=== PATIENT | female | born 1990 | race Caucasian/White ===

== ENCOUNTER 2021-07-12 04:18 | Emergency (ER) | payer BC ==
[~2021-07-12] VITALS: Ht 180.3 cm; Wt 79.1 kg
--- NOTE | 2021-07-12 04:31 | PHYS DOC ---
Past Medical History Past Medical History: Migraines Additional Past Medical Histor: Chronic abdominal pain Past Medical History Limited secondary to intoxication (BAL PRESCOTT DO) Past Surgical History: No Surgical History Past Surgical History Limited secondary to intoxication (BAL PRESCOTT DO) Smoking Status: Never Smoker Alcohol Use: Occasionally Drug Use: Benzodiazepine Social History Limited secondary to intoxication (BAL PRESCOTT DO) General Adult EDM: Chief Complaint: SUICDAL IDEATION HPI: HPI: 30-year-old female presents via EMS with report of intentional overdose with suicidal ideation. Patient reportedly took 10 tablets of her Librium 10 mg, 15 tablets of Phenergan 25 mg, and 10 tablets of Flexeril 10 mg. Patient also reports use of alcohol. Patient also cut herself with a kitchen knife to her l ower abdomen and bilateral thighs. Patient reports last tetanus booster less than 5 years ago. Patient reports she is "just tired of hurting ". History of present illness limited secondary to intoxication. (BAL PRESCOTT DO) Review of Systems: Review of Systems: Constitutional: Denies fever or chills Eyes: Denies redness or eye pain HENT: Denies nasal congestion or sore throat Respiratory: Denies cough or shortness of breath Cardiovascular: Denies chest pain; reports palpitations GI: Denies abdominal pain, nausea, or vomiting : Denies dysuria Integument: Denies rash; reports multiple superficial lacerations which were self-induced Neurologic: Denies headache, focal weakness or sensory changes review of systems limited secondary to intoxication (BAL PRESCOTT DO) Heart Score: C/O Chest Pain: N/A (BAL PRESCOTT DO) C/O Chest Pain: No (ROBERTO SUN MD) Physical Exam: PE: Constitutional: Well developed, well nourished, no acute distress, non-toxic ap pearance HENT: Normocephalic, atraumatic Eyes: Conjunctiva normal, no discharge, horizontal nystagmus noted Neck: Normal range of motion, supple Lungs & Thorax: No respiratory distress, equal chest rise and fall Abdomen: Soft, no tenderness, no guarding/rebound tenderness/distention Skin: Warm, dry, no erythema, lacerations as below 1) Right anterior thigh (superior) (3cm) 2) Right anterior thigh (medial) (3cm) 3) Left anterior thigh (superior) (3cm) 4) Left anterior thigh (medial) (2cm) 5) Left anterior thigh (distal) (6cm) 6) Left posterior thigh (8cm) 7) Superfiscial lacerations 20cm to lower abdomen Back: No tenderness, no CVA tenderness Extremities: No tenderness, ROM intact, no edema Neurologic: Alert and oriented X 3, obtunded, no focal deficits noted Psychologic: Obtunded, judgment abnormal (BAL PRESCOTT DO) EKG: EKG: @0514 NSR at 89bpm, NO ST elevation, baseline artifact noted, QRS 72ms, QT/QTc 424/517ms (BAL PRESCOTT DO) Radiology/Procedures: Radiology/Procedures: [] (BAL PRESCOTT DO) Course & Med Decision Making: Course & Med Decision Making Pertinent Lab studies reviewed. (See chart for details) Patient presents status post intentional overdose with suicidal ideation. Labs obtained and posted to chart. Hypokalemia addressed. Alcohol greater than 200. Banana bag provided. EKG stable. Poison control contacted with recommendation for supportive care. Plan for psychiatric assessment once patient clinically sober. Multiple self cutting lacerations cleaned and repaired. Tetanus up-to-date. 0600-Signout given to Dr. Sun for further evaluation and final disposition. Discussed current findings and plan with patient, who acknowledges understanding and agreement. (BAL PRESCOTT DO) Course & Med Decision Making Accepted patient care shift change, chest finished receiving sutures by previous shift. Somnolent but maintaining airway and in no acute distress. Replace magnesium and potassium IV per poison control request. No laceration found on left calf is approximately 4 cm long but fairly superficial. Wound is approximately 14 hours old. Blood placed to facilitate deep cleaning of the wound. Pending PAT evaluation at shift change. (ROBERTO SUN MD) Dragon Disclaimer: Dragon Disclaimer: This electronic medical record was generated, in whole or in part, using a voice recognition dictation system. (BAL PRESCOTT DO) Laceration/Wound Repair Laceration/Wound Repair : Wound Explored: no foreign body removed Irrigated w/ Saline (ccs): 200 Anesthesia: Lidocaine w/ Epi (2%) Volume Anesthetic (ccs): 20 Wound Debrided: minimal Wound Repaired With: sutures Suture Size/Type: 4:0, nylon Number of Sutures: 28 Sterile Dressing Applied?: Yes Progress Verbal consent obtained. Time out performed. Hand hygiene utilized. Wound cleaned with ChloraPrep. Anesthesia obtained via a 25-gauge hypodermic needle with a total of (20) mL's of lidocaine 2% with epinephrine to patient's multiple superfiscial lacerations. Copious irrigation performed. Wound well approximated with 4-0 Nylon sutures as follows: 1) Right anterior thigh (superior) x 2 sutures (3cm) 2) Right anterior thigh (medial) x 3 sutures (3cm) 3) Left anterior thigh (superior) x 3 sutures (3cm) 4) Left anterior thigh (medial) x 3 sutures (2cm) 5) Left anterior thigh (distal) x 8 sutures (6cm) 6) Left posterior thigh x 9 sutures. (8cm) Patient tolerated procedure well and without difficulty. Empiric antibiotic ointment applied prior to sterile dressing. (BAL PRESCOTT DO) Departure Departure Impression: Primary Impression: Intentional overdose Qualified Codes: T50.902A - Poisoning by unspecified drugs, medicaments and biological substances, intentional self-harm, initial encounter Additional Impressions: Suicidal ideation Deliberate self-cutting Alcohol intoxication Qualified Codes: F10.920 - Alcohol use, unspecified with intoxication, uncomplicated Hypokalemia BAL PRESCOTT DO Jul 12, 2021 04:30 ROBERTO SUN MD Jul 12, 2021 06:52
[2021-07-12] MEDS ORDERED: MUPIROCIN 2 % OINTMENT 22GM TUBE. TP ONE (04:45)
[2021-07-12] MEDS ORDERED: LIDOCAINE 2%/EPI 1:100,000 20 ML VIAL. INJ ONE (05:15)
[2021-07-12 05:29] LABS: BASO # 0.1 x10^3/uL (0.0-0.2); BASO % 1 % (0-3); EOS # 0.1 x10^3/uL (0.0-0.7); EOS % 2 % (0-3); HEMATOCRIT 42.8 % (36.0-47.0); HEMOGLOBIN 14.4 g/dL (12.0-15.5); LYMPH # 1.1 x10^3/uL (1.0-4.8); LYMPH % 24 % (24-48); MEAN CORPUSCULAR HEMOGLOBIN 30 pg (25-35); MEAN CORPUSCULAR HGB CONC 34 g/dL (31-37); MEAN CORPUSCULAR VOLUME 89 fL (79-100); MONO # 0.5 x10^3/uL (0.0-1.1); MONO % 10 % (0-9); NEUT # 2.8 x10^3/uL (1.8-7.7); NEUT % 63 % (31-73); PLATELET COUNT 209 x10^3/uL (140-400); RED BLOOD COUNT 4.83 x10^6/uL (3.50-5.40); RED CELL DISTRIBUTION WIDTH 14.2 % (11.5-14.5); WHITE BLOOD COUNT 4.5 x10^3/uL (4.0-11.0)
[2021-07-12] MEDS ORDERED: IV NORMAL SALINE 1000ML BAG 1,000 ML IV ONE (05:30)
[2021-07-12 05:42] LABS: ACETAMIN < 2 mcg/ml (10-30); SALIC 1.5 mg/dL (2.8-20.0)
[2021-07-12 05:44] LABS: ETHANOL 206 mg/dL (0-10)
[2021-07-12 05:45] LABS: ALBUMIN 3.7 g/dL (3.4-5.0); CREATININE 0.5 mg/dL (0.6-1.0); GFR 144.9; POTASSIUM 3.3 mmol/L (3.5-5.1); TOTAL BILIRUBIN 0.1 mg/dL (0.2-1.0); TOTAL PROTEIN 7.3 g/dL (6.4-8.2)
[2021-07-12] MEDS ORDERED: MULTIVIT INFUSN,ADULT 4,VIT K 10 ML, THIAMINE INJ 100 MG, FOLIC ACID INJ 1 MG in IV NOR... IV ONE (06:30)
[2021-07-12] MEDS ORDERED: POTASSIUM CHLORIDE 20 MEQ TABLET.ER. PO ONE (06:30)
[2021-07-12 11:04] LABS: BILIRUBIN,URINE NEGATIVE (NEG); CLARITY,URINE CLEAR; COLOR,URINE YELLOW; NITRITE,URINE NEGATIVE (NEG); PROTEIN,URINE NEGATIVE (NEG-TRACE); UROBILINOGEN,URINE 0.2 mg/dL (0.2 mg/dL)
[2021-07-12 11:12] LABS: BARBITURATES NEG (NEG); BENZODIAZEPINES NEG (NEG); CANNABINOIDS NEG (NEG); COCAINE NEG (NEG); METHADONE NEG (NEG); OPIATES NEG (NEG); PHENCYCLIDINE NEG (NEG)
[2021-07-12 11:13] LABS: AMPHETAMINE/METHAMPHETAMINE NEG (NEG)
[2021-07-12 11:19] LABS: BACTERIA,URINE 0 /HPF (0-FEW); RBC,URINE 0 /HPF (0-2); WBC,URINE 0 /HPF (0-4)
[2021-07-12] MEDS ORDERED: MAGNESIUM SULFATE 1GM 100 ML IV ONE (11:30)
[2021-07-12] MEDS: POTASSIUM CHLORIDE 20MEQ 100 ML IV SCH ×2 (11:30→13:30)
--- NOTE | 2021-07-12 12:38 | EKG ---
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
[2021-07-12] MEDS ORDERED: LIDOCAINE/EPI/TETRACAINE TOPICAL GEL 3 ML. TP ONE (17:00)
--- NOTE | 2021-07-12 19:44 | RAD ---
Left humerus 2 views. HISTORY: Pain, fell downstairs 2 views were taken of the left humerus. There is not evidence of an acute fracture or osseous abnorma lity. IMPRESSION: 1. No acute fracture noted in the left humerus. Electronically signed by: Saúl Hays MD (07/12/2021 7:42 PM) [facility]
--- NOTE | 2021-07-12 20:02 | RAD ---
EXAM: 1. CT HEAD WITHOUT CONTRAST. 2. CT CERVICAL SPINE WITHOUT CONTRAST. HISTORY: Fall, pain. TECHNIQUE: Computed tomography of the head and cervical spine was performed without intravenous contr ast. One or more of the following individualized dose reduction techniques were utilized for this exa mination: 1. Automated exposure control. 2. Adjustment of the mA and/or kV according to patient size. 3. Use of iterative reconstruction technique. COMPARISON: None. FINDINGS: There is no intracranial hemorrhage. Ureña-white differentiation is preserved. The ventricl es are normal in size and position. The visualized paranasal sinuses appear clear. The orbits are unremarkable. The temporal bones are un remarkable. The calvarium reveals no suspicious lesions. Alignment is maintained. The craniocervical junction is unremarkable. No fractures are identified. In tervertebral disc heights are maintained. There is no prevertebral soft tissue swelling. There is no central canal stenosis or neural foraminal stenosis. IMPRESSION: 1. No acute intracranial findings. 2. No cervical fracture or malalignment. Electronically signed by: Deyanira Guardado MD (07/12/2021 7:59 PM) [facility]
[2021-07-12] MEDS ORDERED: LORazepam 0.5 MG TABLET PO ONE (23:00)
[2021-07-12 23:20] VITALS: BP 102/71
--- NOTE | 2021-07-13 07:32 | EKG ---
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
--- NOTE | 2021-07-13 07:33 | EKG ---
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
--- NOTE | 2021-07-14 09:09 | NUR ---
patient returned call, informed patient of negative covid results.
== END 2021-07-12 23:50 | disposition home or self-care (01) ==
LOC: ER 04:18
DX: T42.4X2A Poisoning by benzodiazepines, intentional self-harm, initial encounter (principal); Z20.822 Contact with and (suspected) exposure to COVID-19; T42.6X2A Poisoning by other antiepileptic and sedative-hypnotic drugs, intentional self-harm, initial encounter; T48.1X2A Poisoning by skeletal muscle relaxants [neuromuscular blocking agents], intentional self-harm, initial encounter; M25.512 Pain in left shoulder; M54.2 Cervicalgia; G89.29 Other chronic pain; G43.909 Migraine, unspecified, not intractable, without status migrainosus; R45.851 Suicidal ideations; X78.1XXA Intentional self-harm by knife, initial encounter; Y93.89 Activity, other specified; Y92.090 Kitchen in other non-institutional residence as the place of occurrence of the external cause; Y99.8 Other external cause status
CPT/HCPCS: 12006; 70450; 72125; 73060; 80053; 80307; 80329; 81001; 81025; 83735; 85025; 87426; 93005; 96361; 96365; 96366; 96367; 96375; 99285; G0480; J2060; J3411; J3475; J3480; J3490; J7030; U0003; U0005